=== PATIENT | male | born 1975 | race Caucasian/White ===

== ENCOUNTER 2018-09-25 17:35 | Emergency (ER) | payer SELFPAY ==
[~2018-09-25] VITALS: Ht 185.4 cm; Wt 84.1 kg
[2018-09-25] MEDS ORDERED: GABA-533 PO (17:52)
[2018-09-25] MEDS ORDERED: TOPI25 PO (17:52)
[2018-09-25] MEDS ORDERED: IBUP-2071 PO (17:52)
[2018-09-25 21:25] LABS: BASOPHILS % (AUTO) 0.6 % (0.0-2.0); EOSINOPHILS % (AUTO) 4.2 % (1.0-6.0); HEMATOCRIT 36.1 % (41-53); HEMOGLOBIN 12.1 g/dL (13.5-17.5); LYMPHOCYTES # (AUTO) 1.2 K/uL (1.0-4.8); LYMPHOCYTES % (AUTO) 19.1 % (22.0-44.0); MEAN CORPUSCULAR HEMOGLOBIN 31.2 pg (26.0-34.0); MEAN CORPUSCULAR HGB CONC 33.6 G/dL (31.0-37.0); MEAN CORPUSCULAR VOLUME 93 fL (80-100); MONOCYTES # (AUTO) 0.7 K/uL (0.1-1.0); MONOCYTES % (AUTO) 11.4 % (2.0-9.0); NEUTROPHILS % (AUTO) 64.7 % (40.0-70.0); PLATELET COUNT (AUTO) 274 K/uL (150-450); RED BLOOD CELL COUNT(AUTO) 3.88 MIL/uL (4.50-5.90); RED CELL DISTRIBUTION WIDTH 13.4 % (11.5-14.5)
[2018-09-25 21:31] LABS: ANION GAP 12 mmol/L (8-16); CALCIUM, TOTAL 8.7 mg/dL (8.8-10.5); CARBON DIOXIDE 25 mmol/L (22-29); CHLORIDE 98 mmol/L (98-107); CREATININE 1.18 mg/dL (0.60-1.30); GLOMERULAR FILTR. RATE CALC > 60 mL/min (>60); GLUCOSE,RANDOM 84 mg/dL (70-110); SODIUM SERUM 135 mmol/L (136-145); UREA NITROGEN, BLOOD 21 mg/dL (7-18)
[2018-09-25 21:36] LABS: POTASSIUM 2.7 mmol/L (3.5-5.1)
[2018-09-25 21:37] LABS: ALANINE AMINOTRANSFERASE 41 U/L (12-78); ALBUMIN 3.7 g/dL (3.4-5.0); ALKALINE PHOSPHATASE 81 U/L (46-116); ASPARTATE AMINOTRANSFERASE 65 U/L (15-37); BILIRUBIN,TOTAL 0.7 mg/dL (0.1-1.0); TOTAL PROTEIN, SERUM 6.8 g/dL (6.4-8.2)
[2018-09-25] MEDS ORDERED: POTASSIUM CHLORIDE 20 MEQ ER TABLET PO ONE (22:00)
[2018-09-26 05:30] VITALS: BP 123/71
[2018-09-26] MEDS ORDERED: AMIT10TA6 PO (08:48)
[2018-09-26] MEDS ORDERED: SERT50TA12 PO (08:48)
== END 2018-09-26 06:00 | disposition home or self-care (01) ==
LOC: EMS 17:37
DX: F32.9 Major depressive disorder, single episode, unspecified (principal); E87.6 Hypokalemia; F19.10 Other psychoactive substance abuse, uncomplicated; F11.90 Opioid use, unspecified, uncomplicated; F12.90 Cannabis use, unspecified, uncomplicated; F14.90 Cocaine use, unspecified, uncomplicated; F15.90 Other stimulant use, unspecified, uncomplicated; F17.210 Nicotine dependence, cigarettes, uncomplicated; Z71.51 Drug abuse counseling and surveillance of drug abuser
CPT/HCPCS: 36415; 80053; 85025; 99284; G0480

== ENCOUNTER 2018-09-26 08:44 | Emergency (ER) | payer SELFPAY ==
[~2018-09-26] VITALS: Ht 185.4 cm; Wt 84.1 kg
[~2018-09-26 08:44] MED LIST: GABA-533 PO; IBUP-2071 PO; TOPI25 PO
[2018-09-26] MEDS ORDERED: AMIT10TA6 PO (08:48)
[2018-09-26] MEDS ORDERED: SERT50TA12 PO (08:48)
[2018-09-26] MEDS ORDERED: BACITRACIN 0.9 GM PACKET OINTMENT TP ONE (09:45)
[2018-09-26] MEDS ORDERED: IBUPROFEN 600 MG TABLET PO ONE (10:15)
[2018-09-26] MEDS ORDERED: ACETAMINOPHEN 500 MG TABLET PO ONE (10:15)
[2018-09-26 10:35] VITALS: BP 132/77
== END 2018-09-26 10:49 | disposition home or self-care (01) ==
LOC: EMS 08:45
DX: S90.412A Abrasion, left great toe, initial encounter (principal); F10.10 Alcohol abuse, uncomplicated; F15.10 Other stimulant abuse, uncomplicated; F17.210 Nicotine dependence, cigarettes, uncomplicated; F32.9 Major depressive disorder, single episode, unspecified; F14.90 Cocaine use, unspecified, uncomplicated; F12.90 Cannabis use, unspecified, uncomplicated; F11.90 Opioid use, unspecified, uncomplicated; X58.XXXA Exposure to other specified factors, initial encounter; Y93.89 Activity, other specified; Y92.89 Other specified places as the place of occurrence of the external cause; Y99.8 Other external cause status
CPT/HCPCS: 99406